=== PATIENT | male | born 1980 | race Two or more races ===

== ENCOUNTER 2021-07-12 04:02 | Emergency (ER) | payer SELFPAY ==
[~2021-07-12] VITALS: Ht 170.2 cm; Wt 104.3 kg
[2021-07-12 09:24] LABS: Basophils # (auto) 0.1 10 ^3/uL (0-0.2); Basophils % (auto) 0.8 % (0.0-2.0); Eosinophils # (auto) 0.2 10 ^3/uL (0-0.8); Eosinophils % (auto) 2.8 % (0.0-7.0); Hematocrit 43.2 % (41.0-53.0); Hemoglobin 14.6 g/dL (13.5-17.5); Lymphocytes # (auto) 2.1 10 ^3/uL (0.4-5.4); Lymphocytes % (auto) 28.1 % (10.0-50.0); Mean Corpuscular Hemoglobin 28.5 pg (28.0-32.0); Mean Corpuscular Hgb Conc. 33.8 g/dL (32.0-36.0); Mean Corpuscular Volume 84.6 fL (80.0-100.0); Monocytes # (auto) 0.5 10 ^3/uL (0-1.3); Neutrophils # (auto) 4.5 10 ^3/uL (1.6-8.6); Neutrophils % (auto) 61.3 % (37.0-80.0); Nucleated Red Blood Cells % 0.1 %; Red Cell Distribution Width 17.8 % (11.8-14.3); White Blood Cell 7.4 10^3/uL (4.4-10.8)
[2021-07-12 09:43] LABS: Alanine Aminotransferase 23 U/L (16-61); Albumin 3.8 g/dL (3.4-5.0); Anion Gap 4 (5-15); Aspartate Aminotransferase 19 U/L (15-37); Blood Urea Nitrogen 4 mg/dL (7-18); Calcium 8.7 mg/dL (8.5-10.1); Carbon Dioxide 27 mmol/L (21-32); Chloride 104 mmol/L (98-107); Glucose 123 mg/dL (74-106); Sodium 135 mmol/L (136-145)
[2021-07-12 09:45] LABS: Alkaline Phosphatase 116 U/L (45-117); BUN/Creatinine Ratio 5.6; Bilirubin, Total 1.6 mg/dL (0.2-1.0); GFR African American 157 mL/min; GFR Non-African American 130 mL/min; Total Protein 7.8 g/dL (6.4-8.2)
[2021-07-12 09:46] LABS: Blood Alcohol < 3.0 mg/dL (0-5)
[2021-07-12 11:04] LABS: Urine Bacteria NONE SEEN /hpf (None Seen); Urine Blood Negative /uL (Negative); Urine Specific Gravity 1.017 (1.001-1.035); Urine WBC 2 /hpf (0 - 3)
[2021-07-12 11:10] LABS: Alcohol, Urine < 3.0 mg/dL (0-10); Amphetamine Screen, Urine NEGATIVE (NEGATIVE); Barbiturate Scree,Urine NEGATIVE (NEGATIVE); Benzodiazephine Screen, Urine NEGATIVE (NEGATIVE); Cannabinoid Screen, Urine NEGATIVE (NEGATIVE); Cocaine Screen, Urine NEGATIVE (NEGATIVE); Opiate Scree,Urine NEGATIVE (NEGATIVE); Phencyclidine Screen, Urine NEGATIVE (NEGATIVE)
[2021-07-12 19:15] VITALS: BP 111/69
[2021-07-13] MEDS ORDERED: risperiDONE 1 MG TAB PO SCH (10:00)
== END 2021-07-13 10:31 | disposition left against medical advice (07) ==
LOC: EDBD 04:02 → ER 04:02
DX: R45.851 Suicidal ideations (principal); F45.42 Pain disorder with related psychological factors; F20.9 Schizophrenia, unspecified; E11.9 Type 2 diabetes mellitus without complications; F32.9 Major depressive disorder, single episode, unspecified; Z59.00 Homelessness unspecified; Z20.822 Contact with and (suspected) exposure to COVID-19
CPT/HCPCS: 36415; 71045; 80053; 80307; 80320; 81001; 85025; 87426